=== PATIENT | male | born 1965 | race Caucasian/White ===

== ENCOUNTER 2017-07-22 04:24 | Emergency (ER) | payer OTHER ==
[2017-07-22 04:38] VITALS: BP 150/90; PULSE 83; RESP 20; TEMP 97.6; O2SAT 100
--- NOTE | 2017-07-22 04:58 | C.PDOC ---
History Of Present Illness 51 y/o male c/o cough for 3 days associated with chest and nasal congestion. Patient is a smoker. Denies fever, chills, chest pain, or SOB. Time Seen by Provider: 07/22/17 04:39 Chief Complaint (Nursing): Cough, Cold, Congestion History Per: Patient History/Exam Limitations: no limitations Onset/Duration Of Symptoms: Days (3) Current Symptoms Are (Timing): Still Present Ear Symptoms: Bilateral: None Severity: Mild Recent travel outside of the [place]: No Additional History Per: Patient Past Medical History Reviewed: Historical Data, Nursing Documentation, Vital Signs Vital Signs: Last Vital Signs Temp 97.6 F 07/22/17 04:32 Pulse 83 07/22/17 04:32 Resp 20 07/22/17 04:32 BP 150/90 07/22/17 04:32 Pulse Ox 100 07/22/17 06:04 - Medical History PMH: Gastritis, Chronic Pain - [facility] Procedures TETANUS TOXOID ADMINIST (02/14/13) Family History: States: Diabetes - Social History Hx Tobacco Use: Yes Hx Alcohol Use: No Hx Substance Use: No - Immunization History Hx Tetanus Toxoid Vaccination: Yes Hx Influenza Vaccination: No Hx Pneumococcal Vaccination: No Review Of Systems Except As Marked, All Systems Reviewed And Found Negative. Constitutional: Negative for: Fever, Chills ENT: Positive for: Nose Congestion. Negative for: Ear Pain Cardiovascular: Positive for: Other (chest congestion). Negative for: Chest Pain Respiratory: Positive for: Cough. Negative for: Shortness of Breath Physical Exam - Physical Exam Appears: Non-toxic, No Acute Distress Skin: Warm, Dry Head: Atraumatic, Normacephalic Eye(s): bilateral: Normal Inspection Ear(s): Bilateral: Normal Oral Mucosa: Moist Throat: Normal, No Erythema Chest: Symmetrical, No Tenderness Cardiovascular: Rhythm Regular, No Murmur Respiratory: Normal Breath Sounds, No Rales, No Rhonchi, No Wheezing Neurological/Psych: Oriented x3 Gait: Steady ED Course And Treatment O2 Sat by Pulse Oximetry: 100 (RA) Pulse Ox Interpretation: Normal Progress Note: Patient is resting comfortably, and is in no acute distress. Patient was instructed to follow up with physician/clinic in 1-2 days for further evaluation. Disposition Counseled Patient/Family Regarding: Diagnosis, Need For Followup, Rx Given - Disposition Disposition: HOME/ ROUTINE Disposition Time: 04:55 Condition: STABLE Additional Instructions: Please follow up in clinic or with PMD Increase PO fluids Take medications prescribed Return to ER if worse Recommend "Smoking cessation" Prescriptions: Benzonatate [Tessalon Perles] 100 mg PO TID #20 sgl Cetirizine HCl [Zyrtec] 10 mg PO DAILY #20 capsule Mometasone Furoate [Nasonex] 2 spray NS BID #1 inhaler Instructions: Upper Respiratory Infection (ED) Forms: [employer] (Yoruba) - Clinical Impression Clinical Impression: Upper respiratory infection - Scribe Statement The provider has reviewed the documentation as recorded by the Scribe Claude appiah All medical record entries made by the Scribe were at my direction and personally dictated by me. I have reviewed the chart and agree that the record accurately reflects my personal performance of the history, physical exam, medical decision making, and the department course for this patient. I have also personally directed, reviewed, and agree with the discharge instructions and disposition.
== END 2017-07-22 05:20 | disposition home or self-care (01) ==
LOC: C.ER 04:24
DX: J06.9 Acute upper respiratory infection, unspecified (principal); Z72.0 Tobacco use

== ENCOUNTER 2018-06-10 11:28 | Emergency (ER) | payer OTHER ==
[2018-06-10 11:44] VITALS: RESP 18; TEMP 98; O2SAT 98
[2018-06-10] MEDS ORDERED: Sodium Chloride 0.9% 1,000 ML IV ONE (12:49)
[2018-06-10] MEDS ORDERED: Sodium Chloride 0.9% 1,000 ML ONE (13:00)
[2018-06-10 13:09] LABS: URINE BILIRUBIN NEGATIVE (NEGATIVE); URINE BLOOD NEGATIVE (NEGATIVE); URINE CLARITY Clear (Clear); URINE COLOR Yellow (YELLOW); URINE GLUCOSE (UA) NORMAL (Normal); URINE LEUKOCYTE ESTERASE NEG Leu/uL (Negative); URINE PROTEIN NEGATIVE (NEGATIVE); URINE UROBILINOGEN NORMAL mg/dL (0.2-1.0)
[2018-06-10 13:16] LABS: BLOOD UREA NITROGEN 12 mg/dL (9-20); CALCIUM 9.4 mg/dl (8.6-10.4); GFR NON-AFRICAN AMERICAN > 60
[2018-06-10 13:17] LABS: ALB/GLOB RATIO 1.4 (1.0-2.1); ALBUMIN 4.4 g/dL (3.5-5.0); ALT/SGPT 25 U/L (21-72); AST/SGOT 21 U/L (17-59); BASO % 0.5 % (0.0-2.0); EOS # 0.1 K/uL (0.0-0.7); EOS % 1.8 % (0.0-4.0); HEMOGLOBIN 15.2 g/dL (12.0-18.0); LIPASE 92 U/L (23-300); LYMPH # 1.3 K/uL (1.0-4.3); LYMPH % 23.1 % (20.0-40.0); MEAN CELL VOLUME 82.9 fL (80.0-94.0); MEAN CORPUSCULAR HEMOGLOBIN 27.5 pg (27.0-31.0); MEAN CORPUSCULAR HGB CONC 33.2 g/dL (33.0-37.0); MEAN PLATELET VOLUME 8.5 fL (7.2-11.7); MONO # 0.4 K/uL (0.0-0.8); MONO % 6.8 % (0.0-10.0); NEUT # 3.7 K/uL (1.8-7.0); NEUT % 67.8 % (50.0-75.0); NRBC % 0.2 % (0.0-2.0); RBC 5.52 Mil/uL (4.40-5.90); RED CELL DISTRIBUTION WIDTH 13.1 % (11.5-14.5); WHITE BLOOD COUNT 5.5 K/uL (4.8-10.8)
--- NOTE | 2018-06-10 14:08 | C.PDOC ---
Addendum entered and electronically signed by Drea French PA 06/13/18 07:31: Addendum Addendum: On re-exam, the patient reports improvement of symptoms. Lungs are CTA, heart is RRR, abdomen is soft, non-tender and tolerating PO well. Patient is ambulatory in the ED with steady gait. Original Note: History Of Present Illness 52-year-old male, presents to the emergency department with complaints of nausea, vomiting and diarrhea since yesterday after eating American food. patient denies any fevers or chills. Time Seen by Provider: 06/10/18 12:00 Chief Complaint (Nursing): Abdominal Pain History Per: Patient History/Exam Limitations: no limitations Past Medical History Reviewed: Historical Data, Nursing Documentation, Vital Signs Vital Signs: Last Vital Signs Temp 98 F 06/10/18 11:39 Pulse 62 06/10/18 11:39 Resp 18 06/10/18 11:39 BP 143/91 H 06/10/18 11:39 Pulse Ox 98 06/10/18 11:39 - Medical History PMH: Gastritis, Chronic Pain - [facility] Procedures TETANUS TOXOID ADMINIST (02/14/13) Family History: States: No Known Family Hx, Diabetes - Social History Hx Tobacco Use: Yes Hx Alcohol Use: No Hx Substance Use: No - Immunization History Hx Tetanus Toxoid Vaccination: Yes Hx Influenza Vaccination: No Hx Pneumococcal Vaccination: No Review Of Systems Constitutional: Negative for: Fever, Chills Gastrointestinal: Positive for: Nausea, Vomiting, Diarrhea Musculoskeletal: Negative for: Back Pain Neurological: Negative for: Weakness, Numbness, Headache, Dizziness Physical Exam - Physical Exam Appears: Non-toxic, No Acute Distress Skin: Warm, Dry, No Rash Head: Atraumatic Eye(s): bilateral: Normal Inspection Nose: Normal Oral Mucosa: Moist Lips: Normal Appearing Neck: Normal ROM Cardiovascular: Rhythm Regular, No Murmur Respiratory: Normal Breath Sounds, No Accessory Muscle Use Gastrointestinal/Abdominal: Soft, No Tenderness Back: Normal Inspection Extremity: Normal ROM, No Deformity Neurological/Psych: Oriented x3, Normal Speech ED Course And Treatment - Laboratory Results Result Diagrams: 06/10/18 12:57 06/10/18 12:57 O2 Sat by Pulse Oximetry: 98 Pulse Ox Interpretation: Normal (RA) Disposition - Disposition Referrals: Yobany Márquez MD [Staff Provider] - Disposition: HOME/ ROUTINE Disposition Time: 14:06 Condition: STABLE Additional Instructions: Follow up with the medical doctor within 1-2 days. Return if worsened. Prescriptions: Ondansetron ODT [Zofran ODT] 1 odt PO BID PRN #6 odt PRN Reason: Nausea/Vomiting Instructions: Food Poisoning Forms: [facility] (Honduran) - Clinical Impression Clinical Impression: Vomiting, Diarrhea - Scribe Statement The provider has reviewed the documentation as recorded by the Scribe (Javad Arshad) All medical record entries made by the Scribe were at my direction and personally dictated by me. I have reviewed the chart and agree that the record accurately reflects my personal performance of the history, physical exam, medical decision making, and the department course for this patient. I have also personally directed, reviewed, and agree with the discharge instructions and disposition.
[2018-06-10 14:15] VITALS: BP 122/74; PULSE 85
== END 2018-06-10 14:15 | disposition home or self-care (01) ==
LOC: C.ER 11:28
DX: R11.10 Vomiting, unspecified (principal); R19.7 Diarrhea, unspecified
CPT/HCPCS: 80053; 81001; 83690; 85025; 96361; 96374; 96375; 99284; J2405; J7030